=== PATIENT | male | born 1995 | race Caucasian/White ===

== ENCOUNTER 2017-03-16 11:27 | Emergency (ER) | payer MEDICAID, OTHER ==
[~2017-03-16] VITALS: Ht 172.7 cm; Wt 90.7 kg
[2017-03-16 11:44] VITALS: BP 163/125
--- NOTE | 2017-03-16 12:22 | NUR ---
Patient to bed 08.
--- NOTE | 2017-03-16 12:22 | NUR ---
Dr. Lemus evaluating patient at bedside.
--- NOTE | 2017-03-16 12:23 | NUR ---
21/M BIB SELF C/O DARRON EAR PAIN SINCE LAST NOC. PT DENIES ANY MEDICAL HX. DENIES N/V/D; SKIN IS PINK/WARM/DRY; AAOX4 WITH EVEN AND STEADY GAIT; LUNGS CLEAR BL; HR EVEN AND REGULAR; PT DENIES ANY FEVER, CP, SOB, OR COUGH AT THIS TIME; PATIENT STATES PAIN OF 5/10 AT THIS TIME;PATIENT POSITIONED FOR COMFORT; HOB ELEVATED; BEDRAILS UP X2; BED DOWN. ER MD MADE AWARE OF PT STATUS.
--- NOTE | 2017-03-16 12:25 | NUR ---
PAIN BOTH EARS 5/10 . PT STATED PT DOES NOT WANT PAIN MED AT THIS TIME
--- NOTE | 2017-03-16 12:36 | NUR ---
Patient discharged with v/s stable. Written and verbal after care instructions given and explained. Patient alert, oriented and verbalized understanding of instructions. Ambulatory with steady gait. All questions addressed prior to discharge. ID band removed. Patient advised to follow up with PMD. Rx of AMOXICILLIN, SUDAFED & TYLENOL given. Patient educated on indication of medication including possible reaction and side effects. Opportunity to ask questions provided and answered.
[2017-03-16 12:44] VITALS: BP 125/69
== END 2017-03-16 12:36 | disposition home or self-care (01) ==
LOC: MED 11:27
DX: H66.91 Otitis media, unspecified, right ear (principal)
CPT/HCPCS: 99283

== ENCOUNTER 2018-03-20 04:05 | Emergency (ER) | payer SELFPAY ==
[~2018-03-20] VITALS: Ht 175.3 cm; Wt 90.7 kg
[2018-03-20 04:12] VITALS: BP 142/81
[2018-03-20 04:39] VITALS: BP 145/80
== END 2018-03-20 04:35 ==
LOC: MED 04:05
DX: Z02.89 Encounter for other administrative examinations (principal)
CPT/HCPCS: 99283

== ENCOUNTER 2018-04-09 20:23 | Emergency (ER) | payer SELFPAY ==
[~2018-04-09] VITALS: Ht 175.3 cm; Wt 81.6 kg
[2018-04-09 20:45] VITALS: BP 132/79
--- NOTE | 2018-04-09 21:48 | NUR ---
Patient ambulated to bed 6. RN evaluating patient at bedside.
--- NOTE | 2018-04-09 22:20 | NUR ---
PT PRESENTS TO ER C/O ABD PAIN AND N/V/D FOR 2 DAYS. PT STATES HE THINKS IT IS FOOD POISONING BECAUSE HE ATE A RESTAUR[employer] 2 DAYS AGO AND WHEN HE BROUGHT THE FOOD HOME HE FOUND A "COCKROACH". ABD IS ROUND, SOFT, NON TENDER, ACTIVE BS X4. PT APPEARS TO BE IN NO APPARENT DISTRESS, LAYING IN BED AT THIS TIME ON PHONE. NO PMH, NKDA
--- NOTE | 2018-04-09 22:52 | NUR ---
AWAITING D/C PAPER WORK FROM DR REA.
[2018-04-09] MEDS ORDERED: ONDANSETRON 4 MG ODT PO ONE (23:10)
[2018-04-09 23:40] VITALS: BP 129/71
== END 2018-04-09 23:42 | disposition home or self-care (01) ==
LOC: MED 20:23
DX: A08.4 Viral intestinal infection, unspecified (principal)
CPT/HCPCS: 81002; 99283; S0119

== ENCOUNTER 2020-11-21 16:42 | Emergency (ER) | payer MEDICAID ==
[~2020-11-21] VITALS: Ht 172.7 cm; Wt 111.6 kg
[2020-11-21 16:49] VITALS: BP 138/80
--- NOTE | 2020-11-21 16:50 | NUR ---
Patient ambulated to bed 6 with steady/even gait.
[2020-11-21] MEDS ORDERED: KETOROLAC 30 MG/ML VIAL IM ONE (16:55)
--- NOTE | 2020-11-21 16:57 | NUR ---
MABEL Palomino is evaluating patient at bedside.
--- NOTE | 2020-11-21 17:05 | NUR ---
24 y/o M coming in from home with c/c low back pain / neck pain. Pt states he has been experiencing pain x 2 years. Was prescribed Naprosyn with little relief. Pt denies any injury, fall, abdominal pain, N/V/D, constipation, chills, fever, cold-like symptoms, painful urination. Pt placed onto electronic device monitor. Bed locked in lowest position, side rails x 1, call light in reach. PMH: Anxiety Meds: Zoloft NKA
[2020-11-21] MEDS ORDERED: MELA1TAB32 PO (17:55)
--- NOTE | 2020-11-21 18:00 | NUR ---
Pt resting in position of comfort. monitor and storage bin tender in place. Bed locked in lowest position, side rails x 1, call light in reach.
--- NOTE | 2020-11-21 18:00 | NUR ---
Pt states pain 6/10 at this time. All other needs met.
[2020-11-21 18:42] VITALS: BP 128/78
--- NOTE | 2020-11-21 18:42 | NUR ---
Patient discharged with v/s stable. Written and verbal after care instructions given and explained. Patient alert, oriented and verbalized understanding of instructions. Ambulatory with steady gait. All questions addressed prior to discharge. ID band removed. Patient advised to follow up with PMD. Rx of Melatonin/Pyridoxine Hcl given. Patient educated on indication of medication including possible reaction and side effects. Opportunity to ask questions provided and answered.
== END 2020-11-21 18:42 | disposition home or self-care (01) ==
LOC: MED 16:42
DX: M54.5 Low back pain (principal); M54.2 Cervicalgia; G47.00 Insomnia, unspecified; F41.9 Anxiety disorder, unspecified
CPT/HCPCS: 72110; 81002; 96372; 99283; J1885

== ENCOUNTER 2021-01-22 03:05 | Emergency (ER) | payer MEDICAID ==
[~2021-01-22] VITALS: Ht 172.7 cm; Wt 103.0 kg
[~2021-01-22 03:05] MED LIST: MELA1TAB32 PO
[2021-01-22 03:11] VITALS: BP 151/82
--- NOTE | 2021-01-22 03:11 | NUR ---
TO BED AMBULATORY
--- NOTE | 2021-01-22 04:15 | NUR ---
25 YO MALE BIB SELF FOR STAPLE REMOVAL ON HIS HEAD. NO BLEEDING/DRAINAGE NOTED. WILL UPDATE ERMD RX NONE AX NONE HX NONE
--- NOTE | 2021-01-22 04:23 | NUR ---
Patient discharged with v/s stable. Written and verbal after care instructions given and explained. Patient alert, oriented and verbalized understanding of instructions. Ambulatory with steady gait. All questions addressed prior to discharge. ID band removed. Patient advised to follow up with PMD. Patient educated on indication of medication including possible reaction and side effects. Opportunity to ask questions provided and answered.
[2021-01-22 04:49] VITALS: BP 155/60
== END 2021-01-22 04:15 | disposition home or self-care (01) ==
LOC: MED 03:05
DX: S01.81XD Laceration without foreign body of other part of head, subsequent encounter (principal); Z79.899 Other long term (current) drug therapy; X58.XXXD Exposure to other specified factors, subsequent encounter
CPT/HCPCS: 99281

== ENCOUNTER 2021-01-25 20:23 | Emergency (ER) | payer MEDICAID ==
[~2021-01-25] VITALS: Ht 172.7 cm; Wt 108.0 kg
[2021-01-25 20:27] VITALS: BP 128/66
--- NOTE | 2021-01-25 20:28 | NUR ---
TO BED AMBULATORY
--- NOTE | 2021-01-25 21:15 | NUR ---
LAB AT BEDSIDE.
--- NOTE | 2021-01-25 21:25 | NUR ---
SUGEY DONE AND HANDED TO TERRELL FROM LAB.
[2021-01-25 21:39] LABS: BASOPHILS # (AUTO) 0.1 K/uL (0.00-0.22); BASOPHILS % (AUTO) 0.6 % (0.0-2.0); EOSINOPHILS # (AUTO) 0.1 K/uL (0-0.4); EOSINOPHILS % (AUTO) 0.7 % (0.0-4.0); HEMATOCRIT 44.7 % (36-52); HEMOGLOBIN 15.3 g/dL (12.0-18.0); LYMPHOCYTES # (AUTO) 2.6 K/uL (2.0-11.5); MEAN CORPUSCULAR HEMOGLOBIN 31 pg (27-31); MEAN CORPUSCULAR HGB CONC 34 g/dL (33-37); MEAN CORPUSCULAR VOLUME 89.6 fL (80-94); MONOCYTES # (AUTO) 0.9 K/uL (0.8-1.0); MONOCYTES % (AUTO) 8.7 % (1.7-9.3); NEUTROPHILS # (AUTO) 6.4 K/uL (1.8-7.7); PLATELET COUNT (AUTO) 337 K/uL (140-450); RED BLOOD CELL COUNT(AUTO) 4.98 MIL/uL (4.20-6.10); RED CELL DISTRIBUTION WIDTH 13.3 % (11.6-13.7); WHITE BLOOD COUNT (AUTO) 10.1 K/uL (4.8-10.8)
[2021-01-25 21:55] LABS: ALBUMIN 3.9 g/dL (3.4-5.0); ANION GAP 11.5 (8-16); ASPARTATE AMINOTRANSFERASE 45 U/L (15-37); CARBON DIOXIDE 26.9 mmol/L (21-32); CHLORIDE 104 mmol/L (98-107); GFR ARICAN-AMERICAN 119 mL/min (>90); GLUCOSE 115 mg/dL (74-106); LIPASE 168 U/L (73-393); POTASSIUM 3.4 mmol/L (3.5-5.1); SODIUM SERUM 139 mmol/L (136-145); TOTAL BILIRUBIN 1.2 mg/dL (0.0-1.0); UREA NITROGEN, BLOOD 7 mg/dL (7-18)
[2021-01-25 22:08] LABS: APPEARANCE,URINE CLEAR (CLEAR); BILIRUBIN,URINE NEGATIVE (NEGATIVE); BLOOD, URINE NEGATIVE (NEGATIVE); COLOR,URINE YELLOW (YELLOW); LEUKOCYTE ESTERASE ,URINE NEGATIVE (NEGATIVE); NITRITE, URINE NEGATIVE (NEGATIVE); UGLUCOSE NEGATIVE (NEGATIVE)
--- NOTE | 2021-01-25 22:15 | NUR ---
PATIENT TAKEN TO RADIOLOGY.
[2021-01-25 22:16] LABS: BARBITURATE, URINE NEGATIVE ng/ml (NEG <=200)
[2021-01-25 22:17] LABS: BENZODIAZEPINE, URINE NEGATIVE ng/mL (NEG <=200); CANNABINOID, URINE POSITIVE ng/mL (NEG <=50); COCAINE, URINE NEGATIVE ng/mL (NEG <=300); OPIATE, URINE NEGATIVE ng/mL (NEG <=2000); PHENCYCLIDINE SCREEN,URINE NEGATIVE ng/mL (NEG <=25)
[2021-01-25 23:08] VITALS: BP 116/66
--- NOTE | 2021-01-25 23:08 | NUR ---
patient refused to sign discharge paperwork.
--- NOTE | 2021-01-25 23:08 | NUR ---
Patient discharged with v/s stable. Written and verbal after care instructions given and explained. Patient verbalized understanding. Ambulatory with steady gait. All questions addressed prior to discharge. Advised to follow up with PMD.
== END 2021-01-25 23:08 | disposition home or self-care (01) ==
LOC: MED 20:23
DX: R10.9 Unspecified abdominal pain (principal); Z20.822 Contact with and (suspected) exposure to COVID-19; F12.90 Cannabis use, unspecified, uncomplicated; Z79.899 Other long term (current) drug therapy
CPT/HCPCS: 36415; 74022; 80053; 80305; 81003; 83690; 85025; 87426; 99284; G0482

== ENCOUNTER 2021-04-18 16:39 | Emergency (ER) | payer MEDICAID ==
[~2021-04-18] VITALS: Ht 172.7 cm; Wt 99.8 kg
[2021-04-18 17:19] VITALS: BP 117/73
--- NOTE | 2021-04-18 17:26 | NUR ---
TENT4
[2021-04-18] MEDS ORDERED: ONDA-24 PO (18:28)
[2021-04-18] MEDS ORDERED: IBUP-2213 PO (18:28)
--- NOTE | 2021-04-18 18:55 | NUR ---
NOVEL SWAB COLLECTED AND HANDED TO RADIO ENGINEERING TEACHER
--- NOTE | 2021-04-18 19:00 | NUR ---
PATIENT SEEN AND TREATED BY MABEL VERONICA. NO NURSING CARE OR INTERVENTIONS PROVIDED
--- NOTE | 2021-04-18 19:00 | NUR ---
Patient discharged with v/s stable. Written and verbal after care instructions given and explained. Patient alert, oriented and verbalized understanding of instructions. Ambulatory with steady gait. All questions addressed prior to discharge. ID band removed. Patient advised to follow up with PMD. Rx of IBUPROFEN AND ZOFRAN given. Patient educated on indication of medication including possible reaction and side effects. Opportunity to ask questions provided and answered.
== END 2021-04-18 19:00 | disposition home or self-care (01) ==
LOC: MED 16:39
DX: B34.9 Viral infection, unspecified (principal); Z20.822 Contact with and (suspected) exposure to COVID-19; Z79.899 Other long term (current) drug therapy
CPT/HCPCS: 99283; U0003

== ENCOUNTER 2021-06-12 02:20 | Emergency (ER) | payer MEDICAID ==
[~2021-06-12] VITALS: Ht 172.7 cm; Wt 108.9 kg
[~2021-06-12 02:20] MED LIST changes: +IBUP-2213 PO; +ONDA-24 PO
[2021-06-12 02:28] VITALS: BP 122/90
--- NOTE | 2021-06-12 02:28 | NUR ---
TO BED AMBULATORY
--- NOTE | 2021-06-12 02:56 | NUR ---
25/M BIB SELD C/O BACK PAIN AND NECK PAIN 06/25, WHICH STARTED EARLIER WHILE AT WORK. PT STATES IT HAS BEEN HAPPENING SINCE JANUARY 2019 BUT HAS WORSEND. PMH: HLD, ANXIETY, SCHIZO NKDA
--- NOTE | 2021-06-12 03:02 | NUR ---
ERMD AT BEDSIDE EXAMINING PATIENT
[2021-06-12] MEDS ORDERED: NAPR-54 PO (03:35)
--- NOTE | 2021-06-12 03:50 | NUR ---
PT REPORTS RUNNING OUT OF ZOLOFT AND RISPERDAL AND STATES HAS BEEN HAVING VAGUE SUICIDAL THOUGHTS. PT DENIES ANY SPECIFIC METHODS OR PLANS. ERMD AT BEDSIDE TALKING WITH PATIENT.
[2021-06-12] MEDS: LORazepam 0.5 MG TAB PO ONE (03:53)
[2021-06-12 04:04] VITALS: BP 122/90
== END 2021-06-12 04:04 | disposition home or self-care (01) ==
LOC: MED 02:20
DX: M54.5 Low back pain (principal); F41.9 Anxiety disorder, unspecified; E78.00 Pure hypercholesterolemia, unspecified
CPT/HCPCS: 99283